=== PATIENT | female | born 1985 | race Caucasian/White ===

== ENCOUNTER 2018-07-31 10:12 | Emergency (ER) | payer OTHER ==
[~2018-07-31] VITALS: Ht 157.5 cm; Wt 59.4 kg
[~2018-07-31 10:12] MED LIST: BACTRIM DS TAB1 EACH PO; CARISOPRODOL 3350 MG PO; DOXYCYCLINE 10100 MG PO; IBUPROFEN 800800 M1 PO; NAPROSYN500 MG PO; NOHOMEMEDICATIONS; NORCO 5-325 TA1 EACH PO; PREDNISONE 20 M20 MG PO; TRAMADOL 50 MG50 MG PO; ULTRAM 50MG TAB50 MG PO
[2018-07-31] MEDS ORDERED: MEDROLDOSEPACK PO (10:58)
[2018-07-31] MEDS ORDERED: NAPROSYN500 MG PO (10:58)
[2018-07-31] MEDS ORDERED: TRAMADOL 50 MG50 MG PO (10:58)
[2018-07-31 11:10] VITALS: BP 128/66
== END 2018-07-31 11:10 | disposition home or self-care (01) ==
LOC: M.ERS 10:12
DX: M77.9 Enthesopathy, unspecified (principal); Z98.890 Other specified postprocedural states; Z88.1 Allergy status to other antibiotic agents

== ENCOUNTER 2019-06-14 03:55 | Emergency (ER) | payer OTHER ==
[~2019-06-14] VITALS: Ht 154.9 cm; Wt 49.9 kg
[~2019-06-14 03:55] MED LIST changes: +MEDROLDOSEPACK PO
[2019-06-14] MEDS ORDERED: LEXAPRO 10 MG T10 M2 PO (04:07)
[2019-06-14] MEDS ORDERED: ABILIFY 5 MG TAB5 MG PO (04:07)
[2019-06-14 04:45] LABS: ABSOLUTE BASOPHILS 0.1 thou/uL (0.0-0.2); ABSOLUTE EOSINOPHILS 0.1 thou/uL (0.0-0.7); ABSOLUTE LYMPHOCYTES 2.7 thou/uL (0.8-5.3); ABSOLUTE MONOCYTES 0.4 thou/uL (0.0-1.2); ABSOLUTE NEUTROPHILS 5.1 thou/uL (1.6-8.1); BASOPHILS 0.6 %; EOSINOPHILS 0.9 %; HEMATOCRIT 39.8 % (37.0-47.0); HEMOGLOBIN 13.8 gm/dL (12.0-15.0); LYMPHOCYTES 32.2 %; MCH 33.7 pg (26.0-34.0); MCHC 34.6 g/dL (28.0-37.0); MCV 97.4 fL (80.0-100.0); MPV 9.3 fl. (7.2-11.1); NUCLEATED RBCS 0 /100WBC; PLATELET COUNT* 197 thou/uL (150-400); POLYS 61.3 %; RBC 4.08 mil/uL (4.20-5.00); RDW-CV 12.8 % (10.5-14.5); WBC 8.3 thou/uL (4.0-11.0)
[2019-06-14 04:55] LABS: CALCIUM 8.4 mg/dL (8.5-10.1); CREATININE 0.7 mg/dL (0.6-1.3); POTASSIUM 3.4 mmol/L (3.5-5.1)
[2019-06-14 05:00] LABS: ALBUMIN 4.2 g/dL (3.4-5.0); TOTAL BILIRUBIN 0.3 mg/dL (<0.1-1.0); TOTAL PROTEIN 7.3 g/dL (6.4-8.2)
[2019-06-14 05:07] LABS: URINE BILIRUBIN NEGATIVE (Negative); URINE BLOOD NEGATIVE (Negative); URINE CLARITY CLEAR; URINE COLOR YELLOW; URINE GLUCOSE-RANDOM NEGATIVE (Negative); URINE KETONES NEGATIVE (Negative); URINE LEUKOCYTES-REFLEX NEGATIVE (Negative); URINE NITRITE-REFLEX NEGATIVE (Negative); URINE PROTEIN NEGATIVE (Negative); URINE UROBILINOGEN 0.2 E.U./dl (0.2-1.0)
[2019-06-14 05:15] LABS: AMP/METHAMP POSITIVE (Negative); BARBITURATES Negative (Negative); BENZODIAZEPINES Negative (Negative); COCAINE Negative (Negative); METHADONE Negative (Negative); OPIATES Negative (Negative); PCP Negative (Negative); THC Negative (Negative)
[2019-06-14 05:55] VITALS: BP 142/92
--- NOTE | 2019-06-14 16:48 | EKG ---
[place] [address] ELECTROCARDIOGRAM REPORT Name: DC GUTIERREZ [id number] Admission: 06/14/19 Attend Phys: Discharge: 06/14/19 Date of : 83 Date of Service: 06/14/19 0401 Report #: [id number] THIS REPORT FOR: //name// [facility] ED Test Date: 2019-06-14 Test Time: 04:01:48 Pat Name: DC GUTIERREZ Department: Room: Gender: F [employer]iter: JOSÉ ANTONIO : 1985 Requested By: Gely Topete Order Number: [id number] MD: Lev Roberts Measurements Intervals [place] Rate: 103 P: 87 UT: 166 QRS: -33 QRSD: 115 T: 58 QT: 370 QTc: 485 Interpretive Statements Sinus tachycardia Nonspecific intraventricular conduction delay ST elev, probable normal early repol pattern Baseline wander in lead(s) II,III,aVF No previous ECG available for comparison Electronically Signed On 06-14-2019 16:47:20 CDT by Lev Roberts [email or web address] <ELECTRONICALLY SIGNED> By: Lev Roberts MD, [facility] 06/14/19 1647 0401 0401 Lev Roberts MD, [facility] /EPI
== END 2019-06-14 05:55 | disposition home or self-care (01) ==
LOC: M.ERS 03:55
PROVIDERS: Personal Emergency Response Attendant
DX: R07.89 Other chest pain (principal); R51 Headache; F41.9 Anxiety disorder, unspecified; Z90.49 Acquired absence of other specified parts of digestive tract; Z98.890 Other specified postprocedural states; Z88.1 Allergy status to other antibiotic agents